=== PATIENT | female | born 1930 | race Caucasian/White ===

== ENCOUNTER → 2018-01-16 | Outpatient (CLI) | payer MEDICARE, OTHER ==
[~2018-01-16] MED LIST: REGADENOSON 0.4 MG/5 ML DISP.SYRIN. IV ONE
--- NOTE | 2018-01-19 09:13 | PCVCIMAG ---
APPROVED REPORT Imaging Protocol: Rest Tc-99m/Stress Tc-99m 1 day Study performed: 01/16/2018 10:24:19 Indication: Chest pain, Sub-maximal SE Patient Location: In-Patient Stress Nurse: Estefanía Marinelli RN [place] Tech:Bryanna Alarcon [facility] Ht: 5 ft 2 in Wt: 112 lbs BSA: 1.49 m2 HR: 61 bpm BP: 163/72 mmHg BMI: 20.4 Rhythm: SR Medical History Medical History: Former Smoker, Age Medications: ASSA, Levothyroxine, Atenolol (held) Allergies: No known drug allergies Pretest Chest Pain Characteristics: No chest pain Resting Data Rest SPECT myocardial perfusion imaging was performed in supine position 45 minutes following the intravenous injection of 10.4 mCi of Tc-99m Sestamibi. Time of rest injection: 0940 Administration Route: IV Administration Site: Right AC Pharmacologic Stress Pharmacologic stress test was performed by injecting Regadenoson 0.4 mg IV push over 10-15 seconds immediately followed by the intravenous injection of 34.3 mCi of Tc-99m Sestamibi. Time of stress injection: 1115 Administration Route: IV Administration Site: Right AC Gated Stress SPECT was performed 45 minutes after stress injection. The images were gated to evaluate regional wall motion and calculate left ventricular ejection fraction. Stress Test Details Stress Test: Pharmacologic stress testing performed using 0.4 mg of regadenoson per 5 mL given IV over 10 seconds. Reason for pharmacologic stress test: physical limitation, spinal stenosis. HRMax Heart Rate (APMHR): 131 bpm Resting HR: 61 bpmTarget HR (85% APMHR): 111 bpm Max HR Achieved: 88 bpm % of APMHR: 67 Recovery HR: 85 bpm BP Resting BP: 163/72 mmHg Recovery BP: 168/80 mmHg ECG Resting ECG: SR Stress ECG: SR Recovery ECG: SR Clinical Reason for Termination: Completed protocol Stress Symptoms: Abdominal discomfort, Chest pain, Dyspnea, Nausea Exercise duration: 0 min 55 sec Symptoms resolved with caffeine. Stress ECG Conclusion 1. Adequate response to iv lexiscan 2. Inadequate heart rate for ECG diagnosis Study Data Post stress, the left ventricular ejection was 79%.. SSS: 1 SRS: 5 SDS: 0 TID = 1.04. Perfusion There is a large area of moderately reduced uptake in the entire segment of the inferior wall which is seen on the stress images as well as the resting images. This area thickens and moves normally and is most consistent with attenuation artifact. Wall Motion Normal left ventricular wall motion. Nuclear Conclusion ECG Findings: non-diagnostic Clinical Findings: negative for ischemia Nuclear Findings: negative for ischemia Exercise Capacity: not assessed Left Ventricular Function: normal 1. Low Risk Study Interpreted by: Jorge A Holland MD Electronically Approved: 01/19/2018 09:13:11 <Conclusion> 1. Adequate response to iv lexiscan 2. Inadequate heart rate for ECG diagnosis
== END | disposition home or self-care (01) ==
LOC: PCVCIMAG 09:19
PROVIDERS: ATTEND Internal Medicine
DX: R07.9 Chest pain, unspecified (principal); R06.09 Other forms of dyspnea
CPT/HCPCS: 78452; 93017; A9500; J2785